=== PATIENT | female | born 1975 | race African-American/Black ===

== ENCOUNTER 2018-11-05 02:10 | Emergency (ER) | payer MEDICAID, MEDICARE ==
[~2018-11-05] VITALS: Ht 154.9 cm; Wt 70.0 kg
[~2018-11-05 02:10] MED LIST: ABILIFY
[2018-11-05 02:18] VITALS: BP 142/100
== END 2018-11-05 04:20 | disposition left against medical advice (07) ==
LOC: ER 02:33
DX: Z53.21 Procedure and treatment not carried out due to patient leaving prior to being seen by health care provider (principal)

== ENCOUNTER 2020-10-02 00:51 | Emergency (ER) | payer MEDICARE ==
[~2020-10-02] VITALS: Ht 162.6 cm; Wt 59.0 kg
[2020-10-02 01:38] LABS: CHLORIDE 106 mEq/L (98-107)
[2020-10-02 01:42] LABS: BASOPHILS % 0.5 % (0.0-2.0); EOSINOPHILS % 0.2 % (0.0-5.0); HEMATOCRIT. 35.2 % (36.0-48.0); HEMOGLOBIN. 11.2 g/dL (12.0-16.0); LYMPHOCYTES % 16.5 % (20.0-50.0); MEAN CORPUSCULAR HEMOGLOBIN 23.6 pg (28.0-32.0); MEAN CORPUSCULAR VOLUME 74.3 fL (81.0-99.0); MEAN PLATELET VOLUME 8.3 fl (7.4-10.4); NEUTROPHILS % 75.8 % (40.0-76.0); PLATELET 440 x1000/uL (130-400); RED BLOOD CELL COUNT 4.74 mill/uL (4.2-5.4)
[2020-10-02 01:43] LABS: ETHANOL BLOOD < 10 mg/dL
[2020-10-02 06:32] LABS: CLARITY URINE TURBID (CLEAR); COLOR URINE YELLOW (YELLOW); KETONES URINE TRACE (NEGATIVE); LEUKOCYTE ESTERASE URINE NEGATIVE (NEGATIVE); NITRITE URINE NEGATIVE (NEGATIVE); OCCULT BLOOD URINE NEGATIVE (NEGATIVE); PROTEIN URINE TRACE (NEGATIVE); SPECIFIC GRAVITY URINE 1.041 (1.005-1.030); UROBILINOGEN URINE 0.2 E.U./dL (0.2-1.0)
[2020-10-02 06:51] LABS: *AMPHETAMINES SCREEN URINE NEGATIVE (NEGATIVE); *BARBITURATES SCREEN URINE NEGATIVE (NEGATIVE); *BENZODIAZEPINES SCREEN URINE NEGATIVE (NEGATIVE); *COCAINE SCREEN URINE NEGATIVE (NEGATIVE)
[2020-10-02 06:52] LABS: CANNABINOID URINE SCREEN NEGATIVE (NEGATIVE); METHADONE URINE SCREEN NEGATIVE (NEGATIVE); OPIATES URINE SCREEN NEGATIVE (NEGATIVE); PHENCYCLIDINE URINE SCREEN NEGATIVE (NEGATIVE)
[2020-10-02 10:10] VITALS: BP 128/69
== END 2020-10-02 10:34 | disposition home or self-care (01) ==
LOC: ER 00:51
DX: R45.851 Suicidal ideations (principal); Z91.14 Patient's other noncompliance with medication regimen; I49.9 Cardiac arrhythmia, unspecified
CPT/HCPCS: 36415; 80053; 80305; 80307; 80320; 80329; 81003; 82962; 85025; 93005; 99285; G0480

== ENCOUNTER 2021-02-06 04:07 | Emergency (ER) | payer MEDICAID, MEDICARE ==
[~2021-02-06] VITALS: Ht 172.7 cm; Wt 68.0 kg
[2021-02-06] MEDS ORDERED: OLANZAPINE 10 MG/VIAL IM ONE ×2 (04:15→10:15)
[2021-02-06 04:34] LABS: BASOPHILS % 0.7 % (0.0-2.0); EOSINOPHILS % 1.1 % (0.0-5.0); HEMATOCRIT. 32.3 % (36.0-48.0); MEAN CORPUSCULAR HEMOGLOBIN 22.6 pg (28.0-32.0); MEAN CORPUSCULAR VOLUME 73.3 fL (81.0-99.0); MEAN PLATELET VOLUME 8.1 fl (7.4-10.4); MONOCYTES % 8.4 % (2.0-8.0); NEUTROPHILS % 71.8 % (40.0-76.0); PLATELET 350 x1000/uL (130-400); RED BLOOD CELL COUNT 4.41 mill/uL (4.2-5.4); RED CELL DISTRIBUTION WIDTH 16.6 % (11.6-14.6)
[2021-02-06 04:43] LABS: CHLORIDE 102 mEq/L (98-107)
[2021-02-06 04:48] LABS: HCG SCREEN NEGATIVE
[2021-02-06 04:50] LABS: ETHANOL BLOOD < 10 mg/dL
[2021-02-06 09:04] LABS: CLARITY URINE CLEAR (CLEAR); COLOR URINE YELLOW (YELLOW); KETONES URINE 1+ (NEGATIVE); LEUKOCYTE ESTERASE URINE NEGATIVE (NEGATIVE); NITRITE URINE NEGATIVE (NEGATIVE); OCCULT BLOOD URINE NEGATIVE (NEGATIVE); PROTEIN URINE NEGATIVE (NEGATIVE); SPECIFIC GRAVITY URINE 1.024 (1.005-1.030)
[2021-02-06 09:15] LABS: *AMPHETAMINES SCREEN URINE NEGATIVE (NEGATIVE); *BARBITURATES SCREEN URINE NEGATIVE (NEGATIVE); *BENZODIAZEPINES SCREEN URINE NEGATIVE (NEGATIVE); *COCAINE SCREEN URINE NEGATIVE (NEGATIVE); METHADONE URINE SCREEN NEGATIVE (NEGATIVE)
[2021-02-06 09:17] LABS: CANNABINOID URINE SCREEN NEGATIVE (NEGATIVE); OPIATES URINE SCREEN NEGATIVE (NEGATIVE); PHENCYCLIDINE URINE SCREEN NEGATIVE (NEGATIVE)
[2021-02-06] MEDS ORDERED: POTASSIUM CHLORIDE 20MEQ TABLET SR PO ONE (09:30)
[2021-02-06] MEDS ORDERED: LORAZEPAM 2MG/ML CPJ IM ONE (10:15)
[2021-02-06 12:15] VITALS: BP 101/64
== END 2021-02-06 16:23 | disposition home or self-care (01) ==
LOC: ER 04:41
DX: F91.8 Other conduct disorders (principal); F31.9 Bipolar disorder, unspecified; Z20.822 Contact with and (suspected) exposure to COVID-19
CPT/HCPCS: 36415; 80053; 80305; 80307; 80320; 80329; 81003; 81025; 84703; 85025; 93005; 96372; 99284; J2060; J3490; Z7610; G0480

== ENCOUNTER 2021-08-10 11:34 | Emergency (ER) | payer MEDICAID, OTHER ==
[~2021-08-10] VITALS: Ht 154.9 cm; Wt 70.0 kg
[2021-08-10 11:37] VITALS: BP 175/82
== END 2021-08-10 15:55 | disposition left against medical advice (07) ==
LOC: ER 15:53
DX: Z53.21 Procedure and treatment not carried out due to patient leaving prior to being seen by health care provider (principal); R06.02 Shortness of breath; R00.0 Tachycardia, unspecified
CPT/HCPCS: 93005

== ENCOUNTER 2021-08-14 20:26 | Emergency (ER) | payer OTHER ==
[~2021-08-14] VITALS: Ht 154.9 cm; Wt 71.2 kg
[2021-08-14 20:40] VITALS: BP 162/93
[2021-08-15] MEDS ORDERED: IPRATROPIUM/ALBUTEROL 0.5-3(2.5)MG/3ML NEB HHN ONE (00:15)
[2021-08-15] MEDS ORDERED: PREDNISONE 20MG TABLET PO ONE (00:30)
[2021-08-15] MEDS ORDERED: P20 MT (01:50)
[2021-08-15 03:01] LABS: CHLORIDE 104 mEq/L (98-107)
[2021-08-15 03:12] LABS: BASOPHILS % 0.5 % (0.0-2.0); EOSINOPHILS % 3.6 % (0.0-5.0); HEMATOCRIT. 32.1 % (36.0-48.0); HEMOGLOBIN. 10.2 g/dL (12.0-16.0); LYMPHOCYTES % 20.6 % (20.0-50.0); MEAN CORPUSCULAR HEMOGLOBIN 23.7 pg (28.0-32.0); MEAN PLATELET VOLUME 8.9 fl (7.4-10.4); MONOCYTES % 6.1 % (2.0-8.0); NEUTROPHILS % 69.2 % (40.0-76.0); PLATELET 332 x1000/uL (130-400); RED BLOOD CELL COUNT 4.29 mill/uL (4.2-5.4); RED CELL DISTRIBUTION WIDTH 18.7 % (11.6-14.6)
[2021-08-15] MEDS ORDERED: ACETAMINOPHEN 325MG TABLET PO ONE (03:45)
== END 2021-08-15 06:58 | disposition home or self-care (01) ==
LOC: ER 20:26
DX: J45.901 Unspecified asthma with (acute) exacerbation (principal)
CPT/HCPCS: 36415; 71045; 80053; 84484; 85025; 93005; 94640; 99285; J7512; Z7610

== ENCOUNTER 2023-07-16 13:48 | Emergency (ER) | payer MEDICAID ==
[~2023-07-16] VITALS: Ht 170.2 cm; Wt 68.0 kg
[~2023-07-16 13:48] MED LIST changes: +P20 MT
[2023-07-16 13:57] VITALS: O2SAT 100
[2023-07-16 15:16] LABS: BASOPHILS % 0.5 % (0.0-2.0); DIFFERENTIAL COMMENT 0; EOSINOPHILS % 1.1 % (0.0-5.0); HEMATOCRIT. 31.4 % (36.0-48.0); HEMOGLOBIN. 10.1 g/dL (12.0-16.0); LYMPHOCYTES % 19.7 % (20.0-50.0); MEAN CORPUSCULAR HEMOGLOBIN 23.6 pg (28.0-32.0); MEAN CORPUSCULAR HGB CONC 32.1 g/dL (31.0-37.0); MEAN CORPUSCULAR VOLUME 73.6 fL (81.0-99.0); MEAN PLATELET VOLUME 8.6 fl (7.4-10.4); MONOCYTES % 8.2 % (2.0-8.0); NEUTROPHILS % 70.5 % (40.0-76.0); PLATELET 380 x1000/uL (130-400); RED BLOOD CELL COUNT 4.27 mill/uL (4.2-5.4); RED CELL DISTRIBUTION WIDTH 16.9 % (11.6-14.6); WHITE BLOOD COUNT 8.7 x1000/uL (4.5-11.0)
[2023-07-16 15:17] LABS: CHLORIDE 105 mEq/L (98-107); INDEX HEMOLYSI 1 (1-3); INDEX ICTERIC 1 (1-4); INDEX LIPEMIC 1 (1-3); POTASSIUM 3.3 mEq/L (3.5-5.1); SODIUM 139 mEq/L (136-145)
[2023-07-16 15:20] LABS: HCG SCREEN NEGATIVE
[2023-07-16 15:26] LABS: ACETAMINOPHEN <2 ug/mL ug/mL (10-30); ALANINE AMINOTRANSFERASE 47 IU/L (13-61); ALBUMIN 3.6 g/dL (3.4-5.0); ASPARTATE AMINOTRANSFERASE 32 IU/L (15-37); BILIRUBIN TOTAL 0.4 mg/dL (0.1-1.0); CARBON DIOXIDE 27 mEq/L (21-32); CREATININE 0.5 mg/dL (0.6-1.3); ETHANOL BLOOD < 10 mg/dL (-10); GLUCOSE 173 mg/dL (70-105); UREA NITROGEN BLOOD 10 mg/dL (7-21)
[2023-07-16 19:32] LABS: CLARITY URINE TURBID (CLEAR); COLOR URINE YELLOW (YELLOW); GLUCOSE URINE NEGATIVE (NEGATIVE); KETONES URINE 2+ (NEGATIVE); LEUKOCYTE ESTERASE URINE 1+ (NEGATIVE); NITRITE URINE NEGATIVE (NEGATIVE); OCCULT BLOOD URINE 3+ (NEGATIVE); PH URINE 5.5 (4.5-8.0); PROTEIN URINE 1+ (NEGATIVE); SPECIFIC GRAVITY URINE 1.028 (1.005-1.030)
[2023-07-16 19:47] LABS: RBC URINE 15-25 /hpf (0-2)
[2023-07-16 19:48] LABS: BACTERIA URINE TRACE; SQUAMOUS EPITHELIAL CELL URINE 1+ /lpf (RARE/1+)
[2023-07-16 19:51] LABS: *AMPHETAMINES SCREEN URINE NEGATIVE (NEGATIVE); *BARBITURATES SCREEN URINE NEGATIVE (NEGATIVE); *BENZODIAZEPINES SCREEN URINE NEGATIVE (NEGATIVE); *COCAINE SCREEN URINE NEGATIVE (NEGATIVE); CANNABINOID URINE SCREEN NEGATIVE (NEGATIVE); ECSTASY MDMA SCREEN URINE NEGATIVE (NEGATIVE); METHADONE URINE SCREEN NEGATIVE (NEGATIVE); OPIATES URINE SCREEN NEGATIVE (NEGATIVE); PHENCYCLIDINE URINE SCREEN NEGATIVE (NEGATIVE)
[2023-07-16 20:00] VITALS: BP 108/76; PULSE 88; RESP 16; TEMP 97.3
[2023-07-16] MEDS ORDERED: CEPHALEXIN 250MG CAPSULE PO SCH ×2 (20:00)
[2023-07-16] MEDS ORDERED: CEPH500T MT (20:42)
[2023-07-16] MEDS ORDERED: POTASSIUM CHLORIDE 20MEQ TABLET SR PO ONE (20:45)
== END 2023-07-16 22:21 | disposition home or self-care (01) ==
LOC: ER 13:48
DX: E87.6 Hypokalemia (principal); R53.1 Weakness; N30.00 Acute cystitis without hematuria; J45.909 Unspecified asthma, uncomplicated; F31.9 Bipolar disorder, unspecified; E11.9 Type 2 diabetes mellitus without complications
CPT/HCPCS: 36415; 80053; 80305; 80307; 80320; 80329; 81003; 84703; 85025; 99283; G0480

== ENCOUNTER 2023-12-21 03:44 | Emergency (ER) | payer MEDICAID ==
[~2023-12-21] VITALS: Ht 162.6 cm; Wt 66.0 kg
[~2023-12-21 03:44] MED LIST changes: +CEPH500T MT
[2023-12-21 03:48] VITALS: O2SAT 98
[2023-12-21] MEDS: HALOPERIDOL LACTATE 5MG/ML VIAL IM ONE (04:30)
[2023-12-21] MEDS: DIPHENHYDRAMINE 50MG/ML VIAL IM ONE (04:30)
[2023-12-21] MEDS: LORAZEPAM 2MG/ML INJ IM ONE (04:30)
[2023-12-21 04:48] LABS: BASOPHILS % 0.6 % (0.0-2.0); DIFFERENTIAL COMMENT 0; EOSINOPHILS % 2.6 % (0.0-5.0); HEMATOCRIT. 30.3 % (36.0-48.0); HEMOGLOBIN. 9.3 g/dL (12.0-16.0); LYMPHOCYTES % 20.3 % (20.0-50.0); MEAN CORPUSCULAR HEMOGLOBIN 22.9 pg (28.0-32.0); MEAN CORPUSCULAR HGB CONC 30.6 g/dL (31.0-37.0); MEAN CORPUSCULAR VOLUME 74.7 fL (81.0-99.0); MEAN PLATELET VOLUME 9.1 fl (7.4-10.4); MONOCYTES % 7.4 % (2.0-8.0); NEUTROPHILS % 69.1 % (40.0-76.0); PLATELET 383 x1000/uL (130-400); RED BLOOD CELL COUNT 4.06 mill/uL (4.2-5.4); RED CELL DISTRIBUTION WIDTH 17.5 % (11.6-14.6); WHITE BLOOD COUNT 9.1 x1000/uL (4.5-11.0)
[2023-12-21 04:51] LABS: ACETAMINOPHEN < 2 ug/mL (10-30); ALANINE AMINOTRANSFERASE 19 IU/L (10-49); ALBUMIN 4.4 g/dL (3.2-4.8); ASPARTATE AMINOTRANSFERASE 19 IU/L (<34); BILIRUBIN TOTAL 0.5 mg/dL (0.1-1.0); CALCIUM 8.5 mg/dL (8.7-10.4); CARBON DIOXIDE 29 mEq/L (21-32); CHLORIDE 100 mEq/L (98-107); CREATININE 0.9 mg/dL (0.6-1.0); GLUCOSE 166 mg/dL (70-105); PROTEIN TOTAL 7.5 g/dL (6.0-8.3); SODIUM 138 mEq/L (136-145); UREA NITROGEN BLOOD 7 mg/dL (9-23)
[2023-12-21 04:54] LABS: ETHANOL BLOOD < 10 mg/dL (<10)
[2023-12-21 05:11] LABS: HCG SCREEN NEGATIVE
[2023-12-21 05:50] LABS: CLARITY URINE CLEAR (CLEAR); COLOR URINE YELLOW (YELLOW); GLUCOSE URINE 3+ (NEGATIVE); KETONES URINE TRACE (NEGATIVE); LEUKOCYTE ESTERASE URINE NEGATIVE (NEGATIVE); NITRITE URINE NEGATIVE (NEGATIVE); OCCULT BLOOD URINE NEGATIVE (NEGATIVE); PH URINE 5.5 (4.5-8.0); PROTEIN URINE TRACE (NEGATIVE); SPECIFIC GRAVITY URINE 1.033 (1.005-1.030)
[2023-12-21 06:03] LABS: *AMPHETAMINES SCREEN URINE NEGATIVE (NEGATIVE); *BARBITURATES SCREEN URINE NEGATIVE (NEGATIVE); *BENZODIAZEPINES SCREEN URINE NEGATIVE (NEGATIVE); *COCAINE SCREEN URINE NEGATIVE (NEGATIVE); CANNABINOID URINE SCREEN NEGATIVE (NEGATIVE); ECSTASY MDMA SCREEN URINE NEGATIVE (NEGATIVE); METHADONE URINE SCREEN Neg (NEGATIVE); OPIATES URINE SCREEN NEGATIVE (NEGATIVE); PHENCYCLIDINE URINE SCREEN NEGATIVE (NEGATIVE)
[2023-12-21] MEDS: POTASSIUM CHLORIDE 20MEQ/PACKET PO NR (06:05)
[2023-12-21] MEDS: HALOPERIDOL LACTATE 5MG/ML VIAL IM NR (06:17)
[2023-12-21] MEDS: DIPHENHYDRAMINE 50MG/ML VIAL IM NR (06:17)
[2023-12-21 06:40] LABS: SQUAMOUS EPITHELIAL CELL URINE FEW /lpf (RARE/1+)
[2023-12-21 06:41] LABS: BACTERIA URINE NONE SEEN; RBC URINE 0-2 /hpf (0-2); WBC URINE 0-2 /hpf (0-2)
[2023-12-21 06:43] VITALS: BP 138/92; PULSE 99; RESP 18; TEMP 97.9
[2023-12-21] MEDS: OLANZAPINE 10MG TABLET PO SCH (10:15)
[2023-12-21] MEDS ORDERED: VALPROATE SODIUM 250MG/5ML UDC PO SCH (14:00)
[2023-12-21] MEDS ORDERED: OLANZAPINE 5MG TABLET ODT PO NR (16:45)
[2023-12-21] MEDS ORDERED: ATOR10TA69 PO (21:18)
[2023-12-21] MEDS ORDERED: ARIP5TAB58 PO (21:18)
[2023-12-21] MEDS ORDERED: METF-414 PO (21:18)
[2023-12-21] MEDS ORDERED: AMLO5TAB88 PO (21:18)
== END 2023-12-21 12:37 | disposition home or self-care (01) ==
LOC: ER 03:54
DX: F22 Delusional disorders (principal); E87.6 Hypokalemia; J45.909 Unspecified asthma, uncomplicated; F31.9 Bipolar disorder, unspecified; E11.9 Type 2 diabetes mellitus without complications; Z98.890 Other specified postprocedural states; Z20.822 Contact with and (suspected) exposure to COVID-19
CPT/HCPCS: 80053; 80305; 81003; 80307; 80329; 80320; 84703; 85025; 36415; 96372; 99284; 87426; J1200; J1630; G0480

== ENCOUNTER 2023-12-21 16:16 | Emergency (ER) | payer MEDICAID ==
[~2023-12-21] VITALS: Ht 165.1 cm; Wt 73.0 kg
[2023-12-21 16:29] VITALS: O2SAT 97
[2023-12-21] MEDS ORDERED: OLANZAPINE 5MG TABLET ODT PO NR (16:36)
[2023-12-21 18:01] LABS: BASOPHILS % 0.6 % (0.0-2.0); DIFFERENTIAL COMMENT 0; EOSINOPHILS % 2.7 % (0.0-5.0); HEMATOCRIT. 31.3 % (36.0-48.0); HEMOGLOBIN. 9.6 g/dL (12.0-16.0); LYMPHOCYTES % 20.9 % (20.0-50.0); MEAN CORPUSCULAR HEMOGLOBIN 22.9 pg (28.0-32.0); MEAN CORPUSCULAR HGB CONC 30.7 g/dL (31.0-37.0); MEAN CORPUSCULAR VOLUME 74.8 fL (81.0-99.0); NEUTROPHILS % 68.8 % (40.0-76.0); PLATELET 398 x1000/uL (130-400); RED BLOOD CELL COUNT 4.18 mill/uL (4.2-5.4); RED CELL DISTRIBUTION WIDTH 17.8 % (11.6-14.6); WHITE BLOOD COUNT 9.5 x1000/uL (4.5-11.0)
[2023-12-21 18:16] LABS: ACETAMINOPHEN < 2 ug/mL (10-30); ALANINE AMINOTRANSFERASE 18 IU/L (10-49); ALBUMIN 4.3 g/dL (3.2-4.8); ASPARTATE AMINOTRANSFERASE 28 IU/L (<34); BILIRUBIN TOTAL 0.6 mg/dL (0.1-1.0); CALCIUM 8.6 mg/dL (8.7-10.4); CARBON DIOXIDE 26 mEq/L (21-32); CHLORIDE 106 mEq/L (98-107); CREATININE 0.6 mg/dL (0.6-1.0); ETHANOL BLOOD < 10 mg/dL (<10); GLUCOSE 171 mg/dL (70-105); POTASSIUM 3.3 mEq/L (3.5-5.1); PROTEIN TOTAL 7.8 g/dL (6.0-8.3); SODIUM 137 mEq/L (136-145); UREA NITROGEN BLOOD 10 mg/dL (9-23)
[2023-12-21] MEDS ORDERED: METF-414 PO (21:18)
[2023-12-21] MEDS ORDERED: ATOR10TA69 PO (21:18)
[2023-12-21] MEDS ORDERED: AMLO5TAB88 PO (21:18)
[2023-12-21] MEDS ORDERED: ARIP5TAB58 PO (21:18)
[2023-12-21] MEDS: OLANZAPINE 5MG TABLET ODT PO NR (21:47)
[2023-12-21 22:58] LABS: *AMPHETAMINES SCREEN URINE NEGATIVE (NEGATIVE); *BARBITURATES SCREEN URINE NEGATIVE (NEGATIVE); *BENZODIAZEPINES SCREEN URINE NEGATIVE (NEGATIVE); *COCAINE SCREEN URINE NEGATIVE (NEGATIVE); CANNABINOID URINE SCREEN NEGATIVE (NEGATIVE); ECSTASY MDMA SCREEN URINE NEGATIVE (NEGATIVE); METHADONE URINE SCREEN Neg (NEGATIVE); OPIATES URINE SCREEN NEGATIVE (NEGATIVE); PHENCYCLIDINE URINE SCREEN NEGATIVE (NEGATIVE)
[2023-12-21] MEDS: POTASSIUM CHLORIDE 20MEQ/PACKET PO ONE (23:00)
[2023-12-22 09:41] VITALS: BP 125/70; PULSE 83; RESP 16; TEMP 97.6
== END 2023-12-22 09:43 | disposition home or self-care (01) ==
LOC: ER 16:16
DX: F31.9 Bipolar disorder, unspecified (principal); J45.909 Unspecified asthma, uncomplicated; E11.9 Type 2 diabetes mellitus without complications; Z20.822 Contact with and (suspected) exposure to COVID-19
CPT/HCPCS: 80053; 80305; 81025; 80307; 80329; 80320; 85025; 36415; 99285; 87426; C1893; G0480

== ENCOUNTER 2024-01-08 23:05 | Emergency (ER) | payer MEDICAID ==
[~2024-01-08] VITALS: Ht 154.9 cm; Wt 63.3 kg
[~2024-01-08 23:05] MED LIST changes: -ABILIFY; +AMLO5TAB88 PO; +ARIP5TAB58 PO; +ATOR10TA69 PO; -CEPH500T MT; +METF-414 PO; -P20 MT
[2024-01-08 23:08] VITALS: BP 158/92; PULSE 107; RESP 16; TEMP 98.5; O2SAT 100
[2024-01-10] MEDS ORDERED: METF-414 MT (08:45)
== END 2024-01-09 06:38 | disposition left against medical advice (07) ==
LOC: ER 23:05
DX: F23 Brief psychotic disorder (principal); Z53.21 Procedure and treatment not carried out due to patient leaving prior to being seen by health care provider
CPT/HCPCS: 99281

== ENCOUNTER 2024-01-10 05:36 | Emergency (ER) | payer MEDICAID ==
[~2024-01-10] VITALS: Ht 160 cm; Wt 70.0 kg
[2024-01-10 06:06] VITALS: BP 133/64; PULSE 102; RESP 18; TEMP 98.5; O2SAT 100
[2024-01-10] MEDS ORDERED: METF-414 MT (08:45)
[2024-01-10] MEDS: OLANZAPINE 5MG TABLET ODT PO ONE (08:54)
[2024-01-10] MEDS: METFORMIN HCL 500MG TABLET PO ONE (08:54)
== END 2024-01-10 09:03 | disposition home or self-care (01) ==
LOC: ER 05:36
DX: E11.9 Type 2 diabetes mellitus without complications (principal); I10 Essential (primary) hypertension; F20.9 Schizophrenia, unspecified
CPT/HCPCS: 99283